=== PATIENT | female | born 1980 | race Caucasian/White ===

== ENCOUNTER 2017-12-29 21:39 | Emergency (ER) | payer MEDICAID ==
[~2017-12-29] VITALS: Ht 165.1 cm; Wt 98.0 kg
[~2017-12-29 21:39] MED LIST: HYDR-519 PO
[2017-12-30] MEDS ORDERED: DOXYCYCLINE HYCLATE 100MG CAPSULE PO ONE (05:15)
[2017-12-30] MEDS ORDERED: TETANUS, DIPHTHERIA, PERTUSSIS VAC/PF 0.5ML (>7YR OLD) IM ONE (05:15)
[2017-12-30] MEDS ORDERED: METRONIDAZOLE 500MG TABLET PO ONE (05:15)
[2017-12-30 06:00] VITALS: BP 97/48
== END 2017-12-30 06:58 | disposition home or self-care (01) ==
LOC: ER 21:39
DX: K61.1 Rectal abscess (principal)
CPT/HCPCS: 46040; 90471; 90715; 99284; X7700; Z7610

== ENCOUNTER 2018-10-11 00:37 | Emergency (ER) | payer OTHER, MEDICAID ==
[~2018-10-11] VITALS: Ht 154.9 cm; Wt 125.0 kg
[2018-10-11] MEDS ORDERED: KETOROLAC 60MG/2ML VIAL IM ONE (03:00)
[2018-10-11 03:13] LABS: BASOPHILS % 0.5 % (0.0-2.0); EOSINOPHILS % 3.4 % (0.0-5.0); HEMATOCRIT. 40.1 % (36.0-48.0); HEMOGLOBIN. 13.2 g/dL (12.0-16.0); LYMPHOCYTES % 23.5 % (20.0-50.0); MEAN CORPUSCULAR HEMOGLOBIN 28.6 pg (28.0-32.0); MEAN CORPUSCULAR VOLUME 86.9 fL (81.0-99.0); MEAN PLATELET VOLUME 9.1 fl (7.4-10.4); MONOCYTES % 6.1 % (2.0-8.0); NEUTROPHILS % 66.5 % (40.0-76.0); PLATELET 283 x1000/uL (130-400); RED BLOOD CELL COUNT 4.62 mill/uL (4.2-5.4); RED CELL DISTRIBUTION WIDTH 14.2 % (11.6-14.6)
[2018-10-11 03:20] LABS: CHLORIDE 109 mEq/L (98-107)
[2018-10-11 03:45] LABS: CLARITY URINE CLOUDY (CLEAR); COLOR URINE ORANGE (YELLOW); KETONES URINE NEGATIVE (NEGATIVE); LEUKOCYTE ESTERASE URINE TRACE (NEGATIVE); NITRITE URINE NEGATIVE (NEGATIVE); OCCULT BLOOD URINE 3+ (NEGATIVE); PROTEIN URINE NEGATIVE (NEGATIVE); SPECIFIC GRAVITY URINE 1.023 (1.005-1.030); UROBILINOGEN URINE 0.2 E.U./dL (0.2-1.0)
[2018-10-11 05:33] VITALS: BP 139/58
== END 2018-10-11 05:38 | disposition home or self-care (01) ==
LOC: ER 00:37
DX: N83.201 Unspecified ovarian cyst, right side (principal); N93.9 Abnormal uterine and vaginal bleeding, unspecified; Z88.5 Allergy status to narcotic agent; Z98.890 Other specified postprocedural states
CPT/HCPCS: 36415; 76830; 76856; 80053; 81003; 81025; 85025; 96372; 99284; J1885